=== PATIENT | female | born 1995 | race Caucasian/White ===

== ENCOUNTER 2016-09-11 13:19 | Outpatient (CLI) | payer OTHER | END 2016-09-11 14:55 | disposition home or self-care (01) | DX: O26.893 Other specified pregnancy related conditions, third trimester (principal); R10.2 Pelvic and perineal pain; Z3A.35 35 weeks gestation of pregnancy ==

== ENCOUNTER 2016-09-16 08:00 | Outpatient (CLI) | payer OTHER | END 2016-09-16 08:01 | disposition home or self-care (01) | DX: Z36 Encounter for antenatal screening of mother (principal) ==

== ENCOUNTER 2016-09-18 19:08 | Inpatient (IN) | payer OTHER ==
[2016-09-18] MEDS ORDERED: LACTATED RINGERS 1,000 ML IV SCH (22:00)
[2016-09-18] MEDS ORDERED: OXYTOCIN/LACTATED RINGERS 250 ML IV SCH (22:00)
[2016-09-18] MEDS ORDERED: SODIUM CHLORIDE FLUSH 0.9% 10 ML SYRINGE IVP ONE (22:05)
[2016-09-18] MEDS ORDERED: fentaNYL 100 MCG/2 ML VIAL ONE (23:09)
[2016-09-18] MEDS ORDERED: SUFENTA/BUPIV 0.4 MCG/0.0625% 150 ML EP ONE (23:10)
[2016-09-18] MEDS ORDERED: ROPIVACAINE 0.2% PF 10 ML VIAL EPI ONE (23:40)
[2016-09-19] MEDS ORDERED: IBUPROFEN 600 MG TABLET PO ONE (13:26)
[2016-09-19] MEDS ORDERED: SODIUM CHLORIDE FLUSH 0.9% 10 ML SYRINGE IVP ONE (15:39)
[2016-09-19] MEDS ORDERED: ACETAMINOPHEN 325 MG TABLET PO PRN (17:00)
[2016-09-19] MEDS ORDERED: IBUPROFEN 600 MG TABLET PO SCH (20:00)
[2016-09-19] MEDS ORDERED: DOCUSATE SODIUM 100 MG CAPSULE PO SCH (21:00)
== END 2016-09-20 12:00 | disposition home or self-care (01) | DRG 775 ==
PROC: 10E0XZZ Delivery of Products of Conception, External Approach (ICD-10-PCS; principal; 2016-09-19)
DX: O42.013 Preterm premature rupture of membranes, onset of labor within 24 hours of rupture, third trimester (principal); Z3A.36 36 weeks gestation of pregnancy; Z37.0 Single live birth